=== PATIENT | male | born 1945 | race American Indian/Alaskan Native ===

== ENCOUNTER 2019-01-30 12:22 | Emergency (ER) | payer MEDICARE ==
--- NOTE | 2019-01-30 12:34 | Emergency Department Report ---
Blank Doc - Documentation Documentation: This is a 73-year-old male that presents with abdominal pain and diarrhea. Den ies any vomiting. Has some nausea. Fever and tachy in triage. This initial assessment/diagnostic orders/clinical plan/treatment(s) is/are subject to change based on patient's health status, clinical progression and re- assessment by fellow clinical providers in the ED. Further treatment and workup at subsequent clinical providers discretion. Patient/guardians urged not to elope from the ED as their condition may be serious if not clinically assessed and managed. Initial orders include: 1- Patient sent to MAIN ED for further evaluation and treatment 2- code sepsis initiated 3- labs 4- fluids
[2019-01-30] MEDS ORDERED: NACL 0.9% 1000 ML IV ONE (12:36)
[2019-01-30] MEDS ORDERED: TYLENOL PO ONE (12:37)
[2019-01-30 13:57] LABS: Hematocrit 28.9 % (35.5-45.6); Hemoglobin 8.9 gm/dl (11.8-15.2); Mean Corpuscular HGB Conc 31 % (32-34); Mean Corpuscular Volume 64 fl (84-94); Platelet Count 245 K/mm3 (140-440); Red Blood Count 4.55 M/mm3 (3.65-5.03); Red Cell Distribution Width 21.1 % (13.2-15.2)
[2019-01-30 14:15] LABS: Alanine Aminotransferase 27 units/L (7-56); Albumin 3.9 g/dL (3.9-5); BUN/Creatinine Ratio 14; Blood Urea Nitrogen 14 mg/dL (9-20); Calcium 8.3 mg/dL (8.4-10.2); Hemolysis Index 12
[2019-01-30 14:36] LABS: Band Neutrophils # (Manual) 0.7 K/mm3; Basophils % (Manual) 0 % (0.0-1.8); Eosinophils % (Manual) 0 % (0.0-4.3); Total Cells Counted 100
[2019-01-30 14:37] LABS: Anisocytosis 1+; Large Platelets 1+; Platelet Estimate Consistent w Auto
[2019-01-30] MEDS ORDERED: LEVAQUIN PO ONE (14:44)
--- NOTE | 2019-01-30 14:45 | Emergency Department Report ---
ED General Adult HPI - General Chief complaint: Abdominal Pain Stated complaint: ABD PAIN/EXTREME Time Seen by Provider: 01/30/19 12:32 Source: patient, RN notes reviewed Mode of arrival: Ambulatory Limitations: No Limitations - History of Present Illness Initial comments: Primary care Dr.: Dr. Seferino Abdalla Patient following up tomorrow with [facility] for BPH Past medical history: Hernia, reported BPH This is a pleasant 73-year-old gentleman who is not known to this provider previously. He presents to the emergency room with complaint of nontraumatic lower abdominal pressure and cramping. He does not know if he has a fever. He does not subjectively feel febrile. The abdominal cramping is now resolved. He does not really have diarrhea. He denies vomiting and nausea. He denies headache, neck pain, chest pain and upper abdominal pain. He denies testicular pain. He denies irritative urinary symptoms. He has no rectal pain. -: hour(s) Location: abdomen Radiation: non-radiation Severity scale (0 -10): 8 Quality: aching Consistency: now resolved Improves with: none Worsens with: none - Related Data Previous Rx's Medication Instructions Recorded Last Taken Type Acetaminophen [Non-Aspirin Extra 500 mg PO Q6HR PRN #30 tablet 01/30/19 Unknown Rx Strength] Ciprofloxacin HCl [Ciprofloxacin 500 mg PO Q12HR #14 tab 01/30/19 Unknown Rx TAB] Ibuprofen [Motrin] 600 mg PO Q8H PRN #30 tablet 01/30/19 Unknown Rx metroNIDAZOLE [Flagyl] 500 mg PO Q8HR #21 tablet 01/30/19 Unknown Rx Allergies Allergy/AdvReac Type Severity Reaction Status Date / Time No Known Allergies Allergy Unverified 01/30/19 12:30 ED Review of Systems ROS: Stated complaint: ABD PAIN/EXTREME Other details as noted in HPI Constitutional: malaise. denies: fever Eyes: denies: eye discharge ENT: denies: epistaxis Respiratory: denies: cough Cardiovascular: denies: chest pain Gastrointestinal: abdominal pain Genitourinary: hematuria. denies: urgency, dysuria, frequency, testicular pain Musculoskeletal: denies: back pain, arthralgia, myalgia Skin: denies: lesions Neurological: denies: weakness Psychiatric: denies: anxiety ED Past Medical Hx - Past Medical History Previous Medical History?: No - Surgical History Past Surgical History?: No - Social History Smoking Status: Never Smoker Substance Use Type: None - Medications Home Medications: Home Medications Medication Instructions Recorded Confirmed Last Taken Type Acetaminophen [Non-Aspirin Extra 500 mg PO Q6HR PRN #30 tablet 01/30/19 Unknown Rx Strength] Ciprofloxacin HCl [Ciprofloxacin 500 mg PO Q12HR #14 tab 01/30/19 Unknown Rx TAB] Ibuprofen [Motrin] 600 mg PO Q8H PRN #30 tablet 01/30/19 Unknown Rx metroNIDAZOLE [Flagyl] 500 mg PO Q8HR #21 tablet 01/30/19 Unknown Rx ED Physical Exam - General Limitations: No Limitations General appearance: alert, in no apparent distress - Head Head exam: Present: atraumatic, normocephalic - Eye Eye exam: Present: normal appearance, EOMI. Absent: nystagmus - ENT ENT exam: Present: normal exam, normal orophraynx, mucous membranes moist, normal external ear exam - Neck Neck exam: Present: normal inspection, full ROM. Absent: tenderness, meni ngismus - Respiratory Respiratory exam: Present: normal lung sounds bilaterally. Absent: respiratory distress, wheezes, rales, rhonchi, stridor, chest wall tenderness, accessory muscle use, decreased breath sounds, prolonged expiratory - Cardiovascular Cardiovascular Exam: Present: regular rate, normal rhythm, normal heart sounds. Absent: bradycardia, tachycardia, irregular rhythm, systolic murmur, diastolic murmur, rubs, gallop - GI/Abdominal GI/Abdominal exam: Present: soft. Absent: distended, tenderness, guarding, rebound, rigid, pulsatile mass - Rectal Rectal exam: Present: normal inspection, normal rectal tone, prostate enlargem ent, other (chaperoned by AZIZA William). Absent: prostate tenderness - exam: Present: normal inspection, testicular tenderness External exam: Present: normal external exam, other (there is no testicular tenderness. There is normal testicular lie bilaterally. There is normal cremasteric reflex bilaterally.) - Extremities Exam Extremities exam: Present: normal inspection, full ROM, other (2+ pulses noted in the bilateral upper, lower extremities. Compartments soft. No long bony tenderness. The pelvis is stable.). Absent: tenderness, pedal edema, joint swelling, calf tenderness - Back Exam Back exam: Present: normal inspection, full ROM. Absent: tenderness, CVA tenderness (R), CVA tenderness (L), paraspinal tenderness, vertebral tenderness - Neurological Exam Neurological exam: Present: alert, oriented X3, normal gait, other (Extraocular movements intact. Tongue midline. No facial droop. Facial sensation intact to light touch in the V1, V2, V3 distribution bilaterally. 5 and 5 strength in 4 extremities.. Sensation is intact to light touch in 4 extremities.). Absent: motor sensory deficit - Psychiatric Psychiatric exam: Present: normal affect, normal mood - Skin Skin exam: Present: warm, dry, intact, normal color. Absent: rash ED Course Vital Signs 01/30/19 01/30/19 01/30/19 12:33 12:40 13:37 Temperature 103.1 F H Pulse Rate 101 H 85 Respiratory 18 18 Rate Blood Pressure 127/72 O2 Sat by Pulse 99 Oximetry 01/30/19 01/30/19 01/30/19 13:45 14:01 14:15 Temperature Pulse Rate 83 79 72 Respiratory 20 16 21 Rate Blood Pressure 118/59 129/63 129/63 O2 Sat by Pulse 99 99 100 Oximetry 01/30/19 01/30/19 01/30/19 14:31 14:45 15:00 Temperature Pulse Rate 71 72 72 Respiratory 16 17 19 Rate Blood Pressure 129/63 129/63 115/54 O2 Sat by Pulse 99 98 100 Oximetry 01/30/19 01/30/19 01/30/19 15:15 15:31 15:45 Temperature 98.3 F Pulse Rate 65 65 68 Respiratory 9 L 17 14 Rate Blood Pressure 115/54 115/54 115/54 O2 Sat by Pulse 98 99 Oximetry 01/30/19 01/30/19 01/30/19 16:04 16:59 17:01 Temperature Pulse Rate 64 62 Respiratory 17 21 Rate Blood Pressure 87/72 87/72 87/72 O2 Sat by Pulse 100 Oximetry 01/30/19 17:15 Temperature Pulse Rate 63 Respiratory 16 Rate Blood Pressure 87/72 O2 Sat by Pulse 100 Oximetry - Reevaluation(s) Reevaluation #1: 01/30/19 16:20 Differential diagnosis, including but not limited to: Urinary tract infection, prostatitis, viral syndrome, intra-abdominal infection Assessment and plan: 73-year-old gentleman with resolved abdominal pain, no tenderness, resolved fever, resolved tachycardia, clinically appears well, and in no acute distress. He endorses that he has follow-up tomorrow with his private urologist. He is started empirically on a sepsis pathway as per nursing triage protocol. He looks remarkably well. CT scan of abdomen and pelvis is pending. Physical examination not consistent with prostatitis, or epididymal orchitis. Reevaluation #2: 01/30/19 17:08 CT scan is reviewed and appreciated. Patient is amenable to having a Romero catheter placed to a leg bag. He has follow-up with his private urologist tomorrow. He is smiling, laughing, calm and pleasant, and tolerating oral feeds. He endorses a desire to be discharged. He indicates he is reliable to follow-up. Based off of the CT scan findings and objective information, it is my opinion that the patient is suitable for a trial of oral outpatient management. ED Medical Decision Making - Lab Data Result diagrams: 01/30/19 13:35 01/30/19 13:35 Vital Signs 01/30/19 01/30/19 01/30/19 12:33 12:40 13:37 Temperature 103.1 F H Pulse Rate 101 H 85 Respiratory 18 18 Rate Blood Pressure 127/72 O2 Sat by Pulse 99 Oximetry 01/30/19 01/30/19 01/30/19 13:45 14:01 14:15 Temperature Pulse Rate 83 79 72 Respiratory 20 16 21 Rate Blood Pressure 118/59 129/63 129/63 O2 Sat by Pulse 99 99 100 Oximetry 01/30/19 01/30/19 01/30/19 14:31 14:45 15:00 Temperature Pulse Rate 71 72 72 Respiratory 16 17 19 Rate Blood Pressure 129/63 129/63 115/54 O2 Sat by Pulse 99 98 100 Oximetry 01/30/19 01/30/19 15:15 15:31 Temperature 98.3 F Pulse Rate 65 65 Respiratory 9 L 17 Rate Blood Pressure 115/54 115/54 O2 Sat by Pulse 98 99 Oximetry Lab Results 01/30/19 01/30/19 01/30/19 Range/Units 13:35 13:35 13:35 WBC 13.7 H (4.5-11.0) K/mm3 RBC 4.55 (3.65-5.03) M/mm3 Hgb 8.9 L (11.8-15.2) gm/dl Hct 28.9 L (35.5-45.6) % MCV 64 L (84-94) fl MCH 20 L (28-32) pg MCHC 31 L (32-34) % RDW 21.1 H (13.2-15.2) % Plt Count 245 (140-440) K/mm3 Add Manual Diff Complete Total Counted 100 Seg Neuts % (Manual) 91.0 H (40.0-70.0) % Band Neutrophils % 5.0 % Lymphocytes % (Manual) 1.0 L (13.4-35.0) % Reactive Lymphs % (Man) 0 % Monocytes % (Manual) 3.0 (0.0-7.3) % Eosinophils % (Manual) 0 (0.0-4.3) % Basophils % (Manual) 0 (0.0-1.8) % Metamyelocytes % 0 % Myelocytes % 0 % Promyelocytes % 0 % Blast Cells % 0 % Nucleated RBC % Not Reportable Seg Neutrophils # Man 12.5 H (1.8-7.7) K/mm3 Band Neutrophils # 0.7 K/mm3 Lymphocytes # (Manual) 0.1 L (1.2-5.4) K/mm3 Abs React Lymphs (Man) 0.0 K/mm3 Monocytes # (Manual) 0.4 (0.0-0.8) K/mm3 Eosinophils # (Manual) 0.0 (0.0-0.4) K/mm3 Basophils # (Manual) 0.0 (0.0-0.1) K/mm3 Metamyelocytes # 0.0 K/mm3 Myelocytes # 0.0 K/mm3 Promyelocytes # 0.0 K/mm3 Blast Cells # 0.0 K/mm3 WBC Morphology Not Reportable Hypersegmented Neuts Not Reportable Hyposegmented Neuts Not Reportable Hypogranular Neuts Not Reportable Smudge Cells Not Reportable Toxic Granulation Not Reportable Toxic Vacuolation Not Reportable Dohle Bodies Not Reportable Pelger-Huet Anomaly Not Reportable [place] Rods Not Reportable Platelet Estimate Consistent w auto Clumped Platelets Not Reportable Plt Clumps, EDTA Not Reportable Large Platelets 1+ Giant Platelets Not Reportable Platelet Satelliting Not Reportable Plt Morphology Comment Not Reportable RBC Morphology Not Reportable Dimorphic RBCs Not Reportable Polychromasia 2+ Hypochromasia Not Reportable Poikilocytosis Not Reportable Anisocytosis 1+ Microcytosis 2+ Macrocytosis Not Reportable Spherocytes Not Reportable Pappenheimer Bodies Not Reportable Sickle Cells Not Reportable Target Cells Not Reportable Tear Drop Cells Not Reportable Ovalocytes Not Reportable Helmet Cells Not Reportable Sherman-Mcguffey Bodies Not Reportable Hale Rings Not Reportable Reilly Cells Not Reportable Bite Cells Not Reportable Crenated Cell Not Reportable Elliptocytes Not Reportable Acanthocytes (Spur) Not Reportable Rouleaux Not Reportable Hemoglobin C Crystals Not Reportable Schistocytes Not Reportable Malaria parasites Not Reportable Wilmer Bodies Not Reportable Hem Pathologist Commnt No Sodium 134 L (137-145) mmol/L Potassium 3.6 (3.6-5.0) mmol/L Chloride 98.6 (98-107) mmol/L Carbon Dioxide 21 L (22-30) mmol/L Anion Gap 18 mmol/L BUN 14 (9-20) mg/dL Creatinine 1.0 (0.8-1.5) mg/dL Estimated GFR > 60 ml/min BUN/Creatinine Ratio 14 % Glucose 116 H (75-100) mg/dL Lactic Acid 2.90 H* (0.7-2.0) mmol/L Calcium 8.3 L (8.4-10.2) mg/dL Total Bilirubin 0.50 (0.1-1.2) mg/dL AST 34 (5-40) units/L ALT 27 (7-56) units/L Alkaline Phosphatase 98 (35-129) units/L Total Protein 7.6 (6.3-8.2) g/dL Albumin 3.9 (3.9-5) g/dL Albumin/Globulin Ratio 1.1 % Lipase (13-60) units/L /20/19 Range/Units 13:35 WBC (4.5-11.0) K/mm3 RBC (3.65-5.03) M/mm3 Hgb (11.8-15.2) gm/dl Hct (35.5-45.6) % MCV (84-94) fl MCH (28-32) pg MCHC (32-34) % RDW (13.2-15.2) % Plt Count (140-440) K/mm3 Add Manual Diff Total Counted Seg Neuts % (Manual) (40.0-70.0) % Band Neutrophils % % Lymphocytes % (Manual) (13.4-35.0) % Reactive Lymphs % (Man) % Monocytes % (Manual) (0.0-7.3) % Eosinophils % (Manual) (0.0-4.3) % Basophils % (Manual) (0.0-1.8) % Metamyelocytes % % Myelocytes % % Promyelocytes % % Blast Cells % % Nucleated RBC % Seg Neutrophils # Man (1.8-7.7) K/mm3 Band Neutrophils # K/mm3 Lymphocytes # (Manual) (1.2-5.4) K/mm3 Abs React Lymphs (Man) K/mm3 Monocytes # (Manual) (0.0-0.8) K/mm3 Eosinophils # (Manual) (0.0-0.4) K/mm3 Basophils # (Manual) (0.0-0.1) K/mm3 Metamyelocytes # K/mm3 Myelocytes # K/mm3 Promyelocytes # K/mm3 Blast Cells # K/mm3 WBC Morphology Hypersegmented Neuts Hyposegmented Neuts Hypogranular Neuts Smudge Cells Toxic Granulation Toxic Vacuolation Dohle Bodies Pelger-Huet Anomaly Te[place] Rods Platelet Estimate Clumped Platelets Plt Clumps, EDTA Large Platelets Giant Platelets Platelet Satelliting Plt Morphology Comment RBC Morphology Dimorphic RBCs Polychromasia Hypochromasia Poikilocytosis Anisocytosis Microcytosis Macrocytosis Spherocytes Pappenheimer Bodies Sickle Cells Target Cells Tear Drop Cells Ovalocytes Helmet Cells Sherman-Mcguffey Bodies Hale Rings [place] Cells Bite Cells Crenated Cell Elliptocytes Acanthocytes (Spur) Rouleaux Hemoglobin C Crystals Schistocytes Malaria parasites Wilmer Bodies Hem Pathologist Commnt Sodium (137-145) mmol/L Potassium (3.6-5.0) mmol/L Chloride (98-107) mmol/L Carbon Dioxide (22-30) mmol/L Anion Gap mmol/L BUN (9-20) mg/dL Creatinine (0.8-1.5) mg/dL Estimated GFR ml/min BUN/Creatinine Ratio % Glucose (75-100) mg/dL Lactic Acid (0.7-2.0) mmol/L Calcium (8.4-10.2) mg/dL Total Bilirubin (0.1-1.2) mg/dL AST (5-40) units/L ALT (7-56) units/L Alkaline Phosphatase (35-129) units/L Total Protein (6.3-8.2) g/dL Albumin (3.9-5) g/dL Albumin/Globulin Ratio % Lipase 20 (13-60) units/L - Radiology Data Radiology results: pending, report reviewed, image reviewed Print Report Referring Physician: YAYA WANG Patient Name: SAYDA ARCINIEGA Date of : 1945 Sex: Male Report Date: 2019-01-30 Report Status: Finalized Findings [facility] [address] [place] [address] Cat Scan Report Signed Patient: SAYDA ARCINIEGA MR#: [id number] : 1945 Acct:[id number] Age/Sex: 73 / M ADM Date: 01/30/19 Loc: ED Attending Dr: Ordering Physician: YAYA WANG MD Date of Service: 01/30/19 Procedure(s): CT abdomen pelvis w con Accession Number(s): [id number] cc: YAYA WANG MD PROCEDURE: CT ABDOMEN PELVIS W CON TECHNIQUE: Computerized axial tomography of the abdomen and pelvis was performed after the IV injection of iodinated nonionic contrast. CT DOSE LENGTH PRODUCT: 2240.9 mGycm HISTORY: lower abd pain COMPARISONS: None . FINDINGS: Contrast-enhanced CT of the abdomen and pelvis was performed. The heart is normal in size. The lung bases appear clear. ABDOMEN: No suspect focal hepatic lesion is seen. The spleen is normal in size at 10.9 cm. The adrenal glands and pancreas are within normal limits. The gallbladder is mildly distended but is otherwise unremarkable. There is mild bilateral hydroureteronephrosis. There is no renal or ureteral calculus. Pelvis: The prostate is greatly enlarged at 6.9 x 6.6 x 8.5 cm for a calculated volume of approximately 201 cc. The urinary bladder is very distended. The bilateral hydroureteronephrosis is likely due to prostatic hypertrophy and lateral at obstruction. The appendix is not seen. There is no evidence of appendicitis. There is no evidence of diverticulitis. There is mild wall thickening of the descending colon and sigmoid colon, which could represent underdistention or sh ort segment colitis. There are vacuum discs at all levels of the lumbar spine. There is endplate remodeling at L2-L3, L3-L4, L4-5 and L5-S1 resulting in the impingement of the exiting L2, L3, L4 and L5 nerve roots bilaterally IMPRESSION: ABDOMEN: Mild bilateral hydroureteronephrosis Pelvis: Greatly enlarged prostate with distended urinary bladder. The bilateral hydronephrosis is likely due to prostatic hypertrophy and bilateral obstruction Wall thickening of descending colon sigmoid colon which could represent underdistention or short segment colitis This document is electronically signed by Hari Morgan MD., Jan 30 2019 04:56:09 PM ET Transcribed By: YUKO Dictated By: HARI MORGAN MD Electronically Authenticated By: HARI MORGAN MD Signed Date/Time: 01/30/19 5714 Critical care attestation.: If time is entered above; I have spent that time in minutes in the direct care of this critically ill patient, excluding procedure time. ED Disposition Clinical Impression: Acute febrile illness, Prostatic hypertrophy Disposition: DC-01 TO HOME OR SELFCARE Is pt being admited?: No Does the pt Need Aspirin: No Condition: Stable Additional Instructions: Take the medications as needed/directed. Take the antibiotics as directed. Cultures were sent today, and results will be available in the next 3-5 days. Have a primary care doctor contact the medical records department to obtain culture results. Did not consume alcohol while taking the antibiotics. Make certain to drink at least 4-5 cups of water every 24 hours. The patient takes metformin medication, do not take for the next 48 hours. Keep the Romero catheter leg bag in place until instructed to discontinue it by your private urology specialist. Please return to the emergency room right away with new pain, worsened pain, migration of pain, projectile vomiting, change of mental status, confusion, inability to tolerate liquid feeds. CT scan of the abdomen and pelvis suggested enlarged prostate gland, in addition to swelling in the ureters, which is the tube that connects the kidney to the bladder, which is likely secondary to enlarged prostate. In addition, the large intestine looks somewhat inflamed. Please follow-up with a gastroenterology specialist to further evaluate this within the next 4-6 weeks. It is very important to follow-up for evaluation for possible colonos copy of the large intestine, to exclude cancer, tumor, malignancy. Prescriptions: Ciprofloxacin HCl [Ciprofloxacin TAB] 500 mg PO Q12HR #14 tab metroNIDAZOLE [Flagyl] 500 mg PO Q8HR #21 tablet Ibuprofen [Motrin] 600 mg PO Q8H PRN #30 tablet PRN Reason: Pain Acetaminophen [Non-Aspirin Extra Strength] 500 mg PO Q6HR PRN #30 tablet PRN Reason: Pain , Severe (7-10) Referrals: [facility] [Provider Group] - 3-5 Days [facility] [Provider Group] - 3-5 Days
--- NOTE | 2019-01-30 16:58 | Cat Scan Report ---
PROCEDURE: CT ABDOMEN PELVIS W CON TECHNIQUE: Computerized axial tomography of the abdomen and pelvis was performed after the IV inject ion of iodinated nonionic contrast. CT DOSE LENGTH PRODUCT: 2240.9 mGycm HISTORY: lower abd pain COMPARISONS: None . FINDINGS: Contrast-enhanced CT of the abdomen and pelvis was performed. The heart is normal in size. The lung bases appear clear. ABDOMEN: No suspect focal hepatic lesion is seen. The spleen is normal in size at 10.9 cm. The adrenal glands and pancreas are within normal limits. The gallbladder is mildly distended but is otherwise unremarkable. There is mild bilateral hydroureteronephrosis. There is no renal or ureteral calculus. Pelvis: The prostate is greatly enlarged at 6.9 x 6.6 x 8.5 cm for a calculated volume of approximately 201 c c. The urinary bladder is very distended. The bilateral hydroureteronephrosis is likely due to prosta tic hypertrophy and lateral at obstruction. The appendix is not seen. There is no evidence of appendicitis. There is no evidence of diverticuliti s. There is mild wall thickening of the descending colon and sigmoid colon, which could represent und erdistention or short segment colitis. There are vacuum discs at all levels of the lumbar spine. There is endplate remodeling at L2-L3, L3-L 4, L4-5 and L5-S1 resulting in the impingement of the exiting L2, L3, L4 and L5 nerve roots bilateral ly IMPRESSION: ABDOMEN: Mild bilateral hydroureteronephrosis Pelvis: Greatly enlarged prostate with distended urinary bladder. The bilateral hydronephrosis is lik mayelin due to prostatic hypertrophy and bilateral obstruction Wall thickening of descending colon sigmoid colon which could represent underdistention or short segm ent colitis This document is electronically signed by Hari Morgan MD., Jan 30 2019 04:56:09 PM ET
[2019-01-30 17:01] VITALS: BP 87/72
[2019-01-30 17:16] LABS: Bacteria,Urine 4+ /HPF (Negative); Bilirubin,Urine NEG (Negative); Blood,Urine LG (Negative); Color,Urine Yellow (Yellow); Mucus,Urine 1+ /HPF; Urobilinogen,Urine < 2.0 mg/dL (<2.0)
== END 2019-01-30 17:32 | disposition home or self-care (01) ==
LOC: ED 12:22
DX: N40.0 Benign prostatic hyperplasia without lower urinary tract symptoms (principal); R50.9 Fever, unspecified
CPT/HCPCS: 36415; 51702; 74177; 80053; 81001; 82140; 83690; 85007; 85025; 87040; 87076; 87086; 87186; 96360; 96361; 99284; J7030; Q9967

== ENCOUNTER 2022-02-24 13:55 | Emergency (ER) | payer MEDICARE ==
[2022-02-24 16:27] VITALS: BP 149/70
[2022-02-24] MEDS ORDERED: TETANUS,DIPH,PERTUSS(ACELL) VACCINE 0.5 ML SYRINGE IM ONE (20:54)
[2022-02-24] MEDS ORDERED: ACETAMINOPHEN W/CODEINE 300-30 MG TAB PO ONE (20:55)
--- NOTE | 2022-02-24 21:24 | Emergency Department Report ---
ED Lower Extremity HPI - General Chief Complaint: Extremity Injury, Lower Stated Complaint: CUT ON KNEE Time Seen by Provider: 02/24/22 20:48 Source: patient Mode of arrival: Ambulatory Limitations: No Limitations - History of Present Illness Initial Comments: Patient 76-year-old male who presents with 4 cm laceration to right anterior knee. 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 Bleeding was controlled with direct pressure self applied at home. Patient remains amatory. No numbness no tingling no paralysis. Patient maintains full knee extension and range of motion. Last tetanus is unknown. Incident happened approximately 6 hours ago. MD Complaint: knee injury - Related Data Previous Rx's Medication Instructions Recorded Last Taken Type Acetaminophen [Non-Aspirin Extra 500 mg PO Q6HR PRN #30 tablet 01/30/19 Unknown Rx Strength] Ciprofloxacin HCl [Ciprofloxacin 500 mg PO Q12HR #14 tab 01/30/19 Unknown Rx TAB] Ibuprofen [Motrin] 600 mg PO Q8H PRN #30 tablet 01/30/19 Unknown Rx metroNIDAZOLE [Flagyl] 500 mg PO Q8HR #21 tablet 01/30/19 Unknown Rx Acetaminophen/Codeine [Tylenol 1 tab PO Q6H PRN #12 tab 02/24/22 Unknown Rx /Codeine # 3 tab] cephALEXin [Keflex] 500 mg PO Q8HR 7 Days #21 cap 02/24/22 Unknown Rx Allergies Allergy/AdvReac Type Severity Reaction Status Date / Time No Known Allergies Allergy Unverified 01/30/19 12:30 ED Review of Systems ROS: Stated complaint: CUT ON KNEE Other details as noted in HPI Constitutional: denies: chills, fever Eyes: denies: eye pain, eye discharge, vision change ENT: denies: ear pain, throat pain Respiratory: denies: cough, shortness of breath, wheezing Cardiovascular: denies: chest pain, palpitations Endocrine: no symptoms reported Gastrointestinal: denies: abdominal pain, nausea, diarrhea Genitourinary: denies: urgency, dysuria Musculoskeletal: other (Right anterior knee laceration 4 cm). denies: back pain, joint swelling, arthralgia Skin: denies: rash, lesions Neurological: denies: headache, weakness, paresthesias Psychiatric: denies: anxiety, depression Hematological/Lymphatic: denies: easy bleeding, easy bruising ED Past Medical Hx - Past Medical History Previous Medical History?: No - Surgical History Past Surgical History?: No - Social History Smoking Status: Never Smoker - Medications Home Medications: Home Medications Medication Instructions Recorded Confirmed Last Taken Type Acetaminophen [Non-Aspirin Extra 500 mg PO Q6HR PRN #30 tablet 01/30/19 Unknown Rx Strength] Ciprofloxacin HCl [Ciprofloxacin 500 mg PO Q12HR #14 tab 01/30/19 Unknown Rx TAB] Ibuprofen [Motrin] 600 mg PO Q8H PRN #30 tablet 01/30/19 Unknown Rx metroNIDAZOLE [Flagyl] 500 mg PO Q8HR #21 tablet 01/30/19 Unknown Rx Acetaminophen/Codeine [Tylenol 1 tab PO Q6H PRN #12 tab 02/24/22 Unknown Rx /Codeine # 3 tab] cephALEXin [Keflex] 500 mg PO Q8HR 7 Days #21 cap 02/24/22 Unknown Rx ED Physical Exam - General Limitations: No Limitations General appearance: alert, in no apparent distress - Head Head exam: Present: normocephalic, normal inspection - Eye Eye exam: Present: EOMI Pupils: Present: normal accommodation - ENT ENT exam: Present: mucous membranes moist - Neck Neck exam: Present: normal inspection, full ROM. Absent: tenderness - Respiratory Respiratory exam: Present: normal lung sounds bilaterally. Absent: respiratory distress, wheezes - Cardiovascular Cardiovascular Exam: Present: regular rate, normal rhythm, normal heart sounds. Absent: systolic murmur, diastolic murmur, rubs, gallop - GI/Abdominal GI/Abdominal exam: Present: soft, normal bowel sounds. Absent: distended, tenderness - Rectal Rectal exam: Present: deferred - Extremities Exam Extremities exam: Present: normal inspection, full ROM, normal capillary refill - Expanded Lower Extremity Exam Right Knee exam: Present: tenderness, laceration (Left medial vertical 4 cm laceration superficial), full knee extension. Absent: swelling, abrasion, ecchymosis, deformity, crepidus, dislocation, erythema, effusion, pain w/ pronation/supination, posterior draw sign, pain/laxity with valgus, pain/laxity with varus Lower Leg exam: Present: full ROM. Absent: tenderness Ankle exam: Present: full ROM. Absent: tenderness Foot/Toe exam: Present: full ROM. Absent: tenderness, swelling Neuro vascular tendon exam: Absent: pulse deficit, motor deficit, sensory deficit, tendon deficit Gait: Positive: observed and normal - Back Exam Back exam: Present: normal inspection, full ROM. Absent: tenderness - Neurological Exam Neurological exam: Present: alert, oriented X3, CN II-XII intact, normal gait, reflexes normal. Absent: motor sensory deficit - Expanded Neurological Exam Expanded Patient oriented to: Present: person, place, time Speech: Present: fluid speech Motor strength exam: RUE: 5, LUE: 5, RLE: 5, LLE: 5 DTR: knee (R): 1+, knee (L): 1+ Best Eye Response ([place]): (4) open spontaneously Best Motor Response ([place]): (6) obeys commands Best Verbal Response ([place]): (5) oriented [place] Total: 15 - Psychiatric Psychiatric exam: Present: normal affect, normal mood - Skin Skin exam: Present: warm, dry, intact, normal color. Absent: rash ED Course Vital Signs 02/24/22 16:23 Temperature 98.9 F Pulse Rate 66 Respiratory 16 Rate Blood Pressure 149/70 O2 Sat by Pulse 99 Oximetry - Laceration /Wound Repair Right Anterior Medial Leg Wound Location: lower extremity (Right anterior medial knee 4 cm laceration superficial) Wound Explored: clean Irrigated w/ Saline (ccs): 200 Betadine Prep?: Yes Anesthesia: 1% Lidocaine Volume Anesthetic (ccs): 3 Wound Debrided: No debridement required no foreign bodies noted x-ray normal no foreign bod Wound Repaired With: sutures Suture Size/Type: 3:0, nylon Number of Sutures: 12 (Running) Layer Closure?: No Sterile Dressing Applied?: Yes Progress: Right anterior medial knee laceration 4 cm superficial. Site cleaned with Betadine solution anesthesia with 1% lidocaine x3 cc. Anesthesia was achieved take, wound irrigated with 200 cc sterile saline range of motion remains intact there is no nerve muscle or tendon damage. No foreign bodies noted wound manually explored with sterile success blunt forceps. Wound closed with 3-0 nylon x12 sutures running edges well approximated all bleeding is controlled sterile dressing applied. CMS remains intact patient tolerated procedure with minimal distress. Patient given wound care instructions including follow-up with primary care doctor in 2 days for wound check. And return in 7 to 10 days for suture removal. discussed symptoms of infection. ED Lower Extremity MDM - Radiology Data Radiology results: report reviewed, image reviewed RIGHT KNEE 4 VIEW(S) INDICATION / CLINICAL INFORMATION: laceration right knee . cut his right knee on a head bone grinder around 1200. Pt had active bleeding on arrival. Pt's knee was bandaged in triage COMPARISON: None available. FINDINGS: BONES / JOINT(S): No acute fracture or subluxation. 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 SOFT TISSUES: Anterior soft tissue laceration. No soft tissue gas. No radiopaque foreign body. ADDITIONAL FINDINGS: None. Signer Name: Tami Rosa MD Signed: 02/24/2022 9:29 PM Workstation Name: [id number] Transcribed By: DT Dictated By: Zhen Rosa MD Electronically Authenticated By: Zhen Rosa MD Signed Date/Time: 02/24/222128 DD/ 27 TD/TT: - Medical Decision Making Laceration repair right knee see procedure note as above. All bleeding is controlled sterile dressings intact. Patient given aftercare instructions. Patient will follow-up primary care doctor in 2 days for wound check 7 to 10 days for suture removal. Patient DC'd home with prescriptions given tetanus patient is alert oriented amatory with steady gait at this time patient DC'd home in stable condition. Critical care attestation.: If time is entered above; I have spent that time in minutes in the direct care of this critically ill patient, excluding procedure time. ED Disposition Clinical Impression: Laceration of knee, right Qualifiers: Encounter type: initial encounter Qualified Code(s): S81.011A - Laceration without foreign body, right knee, initial encounter Disposition: 01 HOME / SELF CARE / HOMELESS Is pt being admited?: No Does the pt Need Aspirin: No Condition: Stable Instructions: Laceration Care, Adult, Sutures, [place], or Adhesive Wound Closure, [id number] Additional Instructions: Take medication as prescribed, follow-up with your doctor in 2 days for wound check. Follow-up with your doctor in 7 to 10 days for suture removal. Return to emergency department should symptoms worsen. Prescriptions: cephALEXin [Keflex] 500 mg PO Q8HR 7 Days #21 cap Acetaminophen/Codeine [Tylenol /Codeine # 3 tab] 1 tab PO Q6H PRN #12 tab PRN Reason: pain Referrals: JOSY VILCHIS MD [Staff Physician] - 3-5 Days Forms: Work/School Release Form(ED) Time of Disposition: 21:55
--- NOTE | 2022-02-24 21:33 | XRay Report ---
RIGHT KNEE 4 VIEW(S) INDICATION / CLINICAL INFORMATION: laceration right knee . cut his right knee on a grinder and plater around 120 0. Pt had active bleeding on arrival. Pt's knee was bandaged in triage COMPARISON: None available. FINDINGS: BONES / JOINT(S): No acute fracture or subluxation. Right total knee arthroplasty without acute abnor mality. SOFT TISSUES: Anterior soft tissue laceration. No soft tissue gas. No radiopaque foreign body. ADDITIONAL FINDINGS: None. Signer Name: Tami Rosa MD Signed: 02/24/2022 9:29 PM Workstation Name: [id number]
== END 2022-02-24 22:27 | disposition home or self-care (01) ==
LOC: ED 13:55
DX: S81.011A Laceration without foreign body, right knee, initial encounter (principal); X58.XXXA Exposure to other specified factors, initial encounter; Y93.89 Activity, other specified; Y92.89 Other specified places as the place of occurrence of the external cause; Y99.8 Other external cause status
CPT/HCPCS: 90471; 90715; 99283